=== PATIENT | female | born 1990 | race Caucasian/White ===

== ENCOUNTER → 2019-07-16 12:38 | Outpatient (CLI) | payer BC, SELFPAY ==
--- NOTE | 2019-07-16 12:40 | DI.US.S_ITS ---
LIMITED ULTRASOUND OF RIGHT BREAST: 07/16/2019 CLINICAL: Palpable right breast lump x 2 weeks. Baseline ultrasound. No prior exams were available for comparison. Color flow and real-time ultrasound of the right breast 7-8 o'clock region were performed. Marcelo scale images of the real-time examination were reviewed. There is a benign 0.7 cm x 0.6 cm x 0.5 cm round cyst in the right breast at 7:30 o'clock anterior depth. This round cyst is anechoic with a well-defined boundary and posterior acoustic enhancement. This correlates as palpated. Color flow imaging demonstrates that there is no vascularity present. Patient reports that the palpable abnormality is decreasing in size. IMPRESSION: BENIGN There is no sonographic evidence of malignancy. Subcentimeter simple cyst in the retroareolar right breast at 7:30 at the palpable abnormality is benign. Return to annual mammogram screening schedule is recommended. Exam findings conveyed to the patient by the staff analyst. Patient is advised to return if she notices a significant change. This exam was interpreted at Station ID: [id number]. Electronically Signed By: Ramo Byrnes M.D. [facility] [place]07/16/2019 14:46:13 letter sent: Normal Exam Ultrasound BI-RADS: 2 Benign
== END ==
PROVIDERS: Referring Provider Obstetrics & Gynecology; Visit Provider Obstetrics & Gynecology
DX: N60.01 Solitary cyst of right breast (principal)
CPT/HCPCS: 76642